=== PATIENT | female | born 1970 | race African-American/Black ===

== ENCOUNTER → 2020-11-22 16:53 | Outpatient (CLI) | payer BC, SELFPAY ==
--- NOTE | ~2020-11-22 | MM_ITS ---
EXAMINATION: MM screening [facility] BI w esther HISTORY: Screening TECHNIQUE: Craniocaudal and mediolateral oblique 3-D tomosynthesis images were obtained and synthetic 2-D images were generated. CAD analysis was submitted and interpreted. COMPARISON: Comparison to multiple prior studies sequentially, with oldest reviewed study dated 01/2014. BREAST PARENCHYMAL COMPOSITION: There are scattered areas of fibroglandular density. FINDINGS: There is no evidence of suspicious mass, calcification, or architectural distortion to sugg est malignancy in either breast. There has been no suspicious interval change. IMPRESSION: 1. No mammographic evidence of malignancy. 2. Recommend routine screening mammography in one year. BI-RADS Category 1: Negative Reviewed, dictated and finalized at location A. ETING MANAGER HEALTH COMMUNICATIONS
== END ==
PROVIDERS: Visit Provider Internal Medicine
DX: Z12.31 Encounter for screening mammogram for malignant neoplasm of breast (principal)
CPT/HCPCS: 77063; 77067

== ENCOUNTER → 2021-12-29 12:16 | Outpatient (CLI) | payer BC, SELFPAY ==
--- NOTE | ~2021-12-29 | MM_ITS ---
EXAMINATION: MM screening [facility] BI w esther HISTORY: Screening mammogram TECHNIQUE: Craniocaudal and mediolateral oblique 3-D tomosynthesis images were obtained and synthetic 2-D images were generated. CAD analysis was submitted and interpreted. COMPARISON: 11/22/2020, 11/06/2019 BREAST PARENCHYMAL COMPOSITION: There are scattered areas of fibroglandular density. FINDINGS: There is no evidence of suspicious mass, calcification, or architectural distortion to sugg est malignancy in either breast. There has been no suspicious interval change. IMPRESSION: 1. No mammographic evidence of malignancy. 2. Recommend routine screening mammography in one year. BI-RADS Category 1: Negative Reviewed, dictated and finalized at location A.
== END ==
PROVIDERS: PCP Internal Medicine; Visit Provider Obstetrics & Gynecology Gynecologic Oncology
DX: Z12.31 Encounter for screening mammogram for malignant neoplasm of breast (principal)
CPT/HCPCS: 77063; 77067

== ENCOUNTER 2022-11-16 18:27 | Emergency (ER) | payer BC, SELFPAY ==
--- NOTE | ~2022-11-16 | US_ITS ---
EXAMINATION: US venous doppler [facility] DATE: 11/16/2022 19:56 INDICATION: Lower extremity pain and edema. TECHNIQUE: Grayscale images without and with compression and Doppler images of the left lower extremi ty veins were obtained. COMPARISON: None FINDINGS: The left common femoral vein, profunda femoral vein, femoral vein, popliteal vein, peroneal vein, pos terior tibial veins, gastrocnemius vein, and greater saphenous vein are patent. Subcutaneous fluid pr esent in the left lateral calf in the area of pain and swelling. IMPRESSION: 1. Patent left lower extremity veins. No evidence of deep venous thrombosis. 2. Left lateral calf edema. Reviewed, dictated and finalized at location K. LY OFFICER
[2022-11-16 18:32] VITALS: BP 185/101; PULSE 117; RESP 15; TEMP 37.2; O2SAT 97
[2022-11-16 18:47] VITALS: BP 160/99; PULSE 100; RESP 18; O2SAT 97
--- NOTE | 2022-11-16 19:08 | ED.GENADULT ---
HPI - General Adult General Chief complaint: Unspecified Stated complaint: multiple complaints Time Seen by Provider: 11/16/22 19:01 History of Present Illness HPI narrative: Patient is a 52-year-old female with a history of hypertension, hyperlipidemia, diabetes presenting with body aches. Patient states that she was diagnosed with the flu several weeks ago. States that she has mostly improved but she has continued to have diffuse body aches. Patient states that for the last 2 days she has had a lot of pain in her left calf. States that she recently drove to [place] and [facility]. States that she went to urgent care today for evaluation but they closed so they directed her to the ER. She denies headache, fevers or chills, cough, chest pain, shortness of breath, abdominal pain, vomiting, diarrhea, dysuria. She does report some nausea and muscle cramps over the weekend. Related Data Allergies Allergy/AdvReac Type Severity Reaction Status Date / Time amoxicillin Allergy Mild Verified 05/18/10 18:02 Review of Systems Review of Systems: All systems reviewed & are unremarkable except as noted in HPI and below Exam Narrative: GENERAL: Well-appearing, well-nourished, and in no acute distress. HEAD: Normocephalic, atraumatic. EYES: PERRLA and EOMI. ENT: Nares clear, no rhinorrhea or epistaxis. Mucous membranes moist. NECK: Supple. CHEST: Clear to auscultation. No respiratory distress. HEART: Regular rate and rhythm. No murmur heard. Normal peripheral pulses. ABDOMEN: Soft, nontender, nondistended, normal active bowel sounds. EXTREMITIES: Normal range of motion. No edema. SKIN: Warm, dry, no rash. NEURO: No focal deficits. Alert and oriented x3. PSYCH: Normal mood and affect. Course Vital Signs Vital signs: Vital Signs Temperature 99 F 11/16/22 18:32 Pulse Rate 117 H 11/16/22 18:32 Respiratory Rate 15 11/16/22 18:32 Blood Pressure 185/101 H 11/16/22 18:32 Pulse Oximetry 97 11/16/22 18:32 Oxygen Delivery Room Air 11/16/22 18:32 Temperature 99 F 11/16/22 18:32 Pulse Rate 88 11/16/22 21:00 Respiratory Rate 16 11/16/22 21:00 Blood Pressure 137/87 11/16/22 21:00 Pulse Oximetry 99 11/16/22 21:00 Oxygen Delivery Room Air 11/16/22 18:32 Medical Decision Making MDM Narrative Medical decision making narrative: Patient is a 52-year-old female presenting with left leg pain and muscle cramping. Patient is hypertensive and was initially a bit tachycardic but this had resolved by my evaluation. Exam is unremarkable. Plan to check labs, ultrasound of the left leg. Blood work with very mild hypocalcemia. Will recommend increasing calcium rich foods. Ultrasound shows no evidence of DVT. On reevaluation, the patient is resting comfortably. Her vitals have completely normalized. Discussed appropriate supportive care and recommended PCP follow-up. Appropriate return precautions given. Patient voiced understanding and is agreeable with plan. Discharged in stable condition Differential Diagnosis Differential Diagnosis: Viral syndrome, URI, DVT, electrolyte derangement Vital Signs Vital Signs: Vital Signs Temperature 99 F 11/16/22 18:32 Pulse Rate 117 H 11/16/22 18:32 Respiratory Rate 15 11/16/22 18:32 Blood Pressure 185/101 H 11/16/22 18:32 Pulse Oximetry 97 11/16/22 18:32 Oxygen Delivery Room Air 11/16/22 18:32 Temperature 99 F 11/16/22 18:32 Pulse Rate 88 11/16/22 21:00 Respiratory Rate 16 11/16/22 21:00 Blood Pressure 137/87 11/16/22 21:00 Pulse Oximetry 99 11/16/22 21:00 Oxygen Delivery Room Air 11/16/22 18:32 Lab Data 11/16/22 19:32 11/16/22 19:32 Labs: Lab Results 11/16/22 11/16/22 Range/Units 19:32 19:32 WBC 6.4 (4.5-10.0) K/mm3 RBC 3.43 L (4.2-5.4) M/mm3 Hgb 11.1 L (12.0-15.0) g/dL Hct 35.5 L (37.0-47.0) % MCV 103.5 H (80-100) fl MCH 32.4 (26-34) pg MCHC 31.3 L (
[2022-11-16 19:37] LABS: Basophils Percent Auto 0.2 % (0.2-1.2); Eosinophils Absolute Auto 0.2 K/mm3 (0-0.3); Eosinophils Percent Auto 2.8 % (0-4.4); Hematocrit 35.5 % (37.0-47.0); Hemoglobin 11.1 g/dL (12.0-15.0); Immature Granulocyte Absolute 0.03 K/mm3 (0.00-0.031); Immature Granulocyte Percent A 0.5 % (0-0.5); Lymphocytes Absolute Auto 2.86 K/mm3 (0.9-3.2); Lymphocytes Percent Auto 44.9 % (18.3-44.2); Mean Corpuscular HGB Conc 31.3 g/dl (32-36); Mean Corpuscular Hemoglobin 32.4 pg (26-34); Mean Corpuscular Volume 103.5 fl (80-100); Mean Platelet Volume 9.4 fl (7.4-10.4); Monocytes Absolute Auto 0.6 K/mm3 (0.1-0.6); Monocytes Percent Auto 9.4 % (2.6-8.5); Neutrophils Absolute Auto 2.7 K/mm3 (1.3-6.7); Neutrophils Percent Auto 42.2 % (45.5-73.1); Platelet Count Result 301 k/mm3 (150-375); Red Blood Count 3.43 M/mm3 (4.2-5.4); White Blood Count 6.4 K/mm3 (4.5-10.0)
[2022-11-16 19:50] LABS: Alanine Aminotransferase 22 U/L (6-35); Albumin Level 3.5 g/dL (3.5-5.1); Alkaline Phosphatase 96 U/L (38-126); Anion Gap 5 mmol/L (8-16); Aspartate Amino Transferase 23 U/L (14-36); Bilirubin,Total 0.4 mg/dL (0.2-1.3); Blood Urea Nitrogen 9 mg/dL (7-17); Calcium 8.3 mg/dL (8.4-10.2); Carbon Dioxide 30 mmol/L (22-30); Chloride 105 mmol/L (98-107); Estimated CRCL calculation 70 ml/min; Estimated Glomerular Filt Rate > 60; Glucose 209 mg/dL (65-110); Potassium 3.7 mmol/L (3.4-5.0); Sodium 140 mmol/L (137-145)
[2022-11-16] MEDS: SODIUM CHLORIDE 0.9% IV 1,000 ML 999 ML IV CONT (20:01)
[2022-11-16] MEDS: KETOROLAC 15 MG/ML VIAL (*BKC) IV PUSH (20:01)
[2022-11-16 20:02] VITALS: BP 137/84; PULSE 83; RESP 16; O2SAT 100
[2022-11-16 21:00] VITALS: BP 137/87; PULSE 88; RESP 16; O2SAT 99
== END 2022-11-16 21:04 | disposition home or self-care (01) ==
PROVIDERS: Emergency Provider Emergency Medicine; PCP Internal Medicine
DX: M79.662 Pain in left lower leg (principal); E83.51 Hypocalcemia
CPT/HCPCS: 36415; 80053; 85025; 93971; 96361; 96374; 99284; J1885; J7030

== ENCOUNTER → 2022-12-30 16:53 | Outpatient (CLI) | payer BC, SELFPAY ==
--- NOTE | ~2022-12-30 | MM_ITS ---
EXAMINATION: MM screening [facility] BI w esther HISTORY: Screening mammogram TECHNIQUE: Craniocaudal and mediolateral oblique 3-D tomosynthesis images were obtained and synthetic 2-D images were generated. CAD analysis was submitted and interpreted. COMPARISON: 12/29/2021, 11/22/2020, 11/06/2019 bilateral screening mammogram examinations BREAST PARENCHYMAL COMPOSITION: There are scattered areas of fibroglandular density. FINDINGS: There is no evidence of suspicious mass, calcification, or architectural distortion to sugg est malignancy in either breast. There has been no suspicious interval change. IMPRESSION: 1. No mammographic evidence of malignancy. 2. Recommend routine screening mammography in one year. BI-RADS Category 1: Negative Reviewed, dictated and finalized at location A.
== END ==
PROVIDERS: PCP Internal Medicine; Visit Provider Obstetrics & Gynecology Gynecologic Oncology
DX: Z12.31 Encounter for screening mammogram for malignant neoplasm of breast (principal)
CPT/HCPCS: 77063; 77067

== ENCOUNTER 2024-01-03 16:18 | Outpatient (CLI) | payer BC, SELFPAY ==
--- NOTE | ~2024-01-03 | MM_ITS ---
EXAMINATION: MM screening [facility] BI w esther HISTORY: Screening TECHNIQUE: Craniocaudal and mediolateral oblique 3-D tomosynthesis images were obtained and synthetic 2-D images were generated. CAD analysis was submitted and interpreted. COMPARISON: Comparison to multiple prior studies sequentially, with oldest reviewed study dated 05/2018. BREAST PARENCHYMAL COMPOSITION: Not dense: There are scattered areas of fibroglandular density. FINDINGS: There is no evidence of suspicious mass, calcification, or architectural distortion to sugg est malignancy in either breast. There has been no suspicious interval change. IMPRESSION: 1. No mammographic evidence of malignancy. 2. Recommend routine screening mammography in one year. BI-RADS Category 1: Negative Reviewed, dictated and finalized at location A.
== END 2024-01-03 16:19 ==
LOC: MICIMG 16:20
PROVIDERS: Visit Provider Internal Medicine
DX: Z12.31 Encounter for screening mammogram for malignant neoplasm of breast (principal)
CPT/HCPCS: 77063; 77067

== ENCOUNTER 2025-01-08 16:01 | Outpatient (CLI) | payer BC, SELFPAY ==
--- NOTE | ~2025-01-08 | MM_ITS ---
EXAMINATION: MM screening [facility] BI w esther HISTORY: Screening TECHNIQUE: Craniocaudal and mediolateral oblique 3-D tomosynthesis images were obtained and synthetic 2-D images were generated. CAD analysis was submitted and interpreted. COMPARISON: 01/03/2024 and dating back to 11/06/2019 BREAST PARENCHYMAL COMPOSITION: The breasts are heterogeneously dense, which may obscure small masses . FINDINGS: Stable parenchymal pattern without suspicious microcalcifications, architectural distortion, discrete masses or significant asymmetry. IMPRESSION: 1. No mammographic evidence of malignancy. 2. Recommend routine screening mammography in one year. BI-RADS Category 1: Negative Reviewed, dictated and finalized at location A.
== END 2025-01-08 16:02 | disposition home or self-care (01) ==
LOC: MICIMG 16:03
PROVIDERS: PCP Internal Medicine; Visit Provider Internal Medicine
DX: Z12.31 Encounter for screening mammogram for malignant neoplasm of breast (principal)
CPT/HCPCS: 77063; 77067

== ENCOUNTER 2025-02-10 14:01 | Emergency (ER) | payer BC, SELFPAY ==
--- NOTE | ~2025-02-10 | CT_ITS ---
CT brain wo con Ordering provider: Ina Ramsey MD History: 54 years Female with . trauma . Comparison: None. Technique: CT of the head without contrast. Radiation reduction technique utilized.The dose-length pr oduct was 605.33 mGy-cm. FINDINGS: BRAIN PARENCHYMA AND CSF SPACES: No midline shift, mass effect or hemorrhage. The brain parenchyma a nd CSF spaces are otherwise normal. VISUALIZED PARANASAL SINUSES: Well aerated. MASTOIDS: Well aerated. BONES: The bones appear intact. SOFT TISSUES: Visualized nasopharynx is normal. Superficial soft tissues are normal. IMPRESSION: No acute intracranial findings. Reviewed, dictated and finalized at location A.
--- OUTSIDE RECORDS SUMMARY | 2025-02-10 14:03 | XMS_ITS | Clinical Summary ---
Author Organization [facility] Address [address] [place] [address] Care Team Providers Care Retail Pharmacy Technician Name Role Phone Unavailable Primary Care Provider Unavailabl e Source Comments [facility],non-owned Affiliates and Associated Physician Practices is amultiple site organization consisting of ambulatory clinics and hospital sitesin [place], [place], [place] and [place]. This disclosure is being madepursuant to the Care Everywhere program and may not contain all information available regarding this patient. Last updated 18.[facility] Allergies Active Allergy Reactions Criticality Noted Date Comments Penicillins Urticaria Medium 09/01/2019 Medications * Be aware that medications may not be up to date on this document. Alwaysverify current medications with the patient. METFORMIN HCL PO Active fluticasone propionate (FLONASE) 50 MCG/ACT nasal spray [place] 2 sprays into each nostril once daily 1 g 09/01/2019 Active Social History Tobacco Use Types Packs/Day Years Used Date Smoking Tobacco: Never Smokeless Tobacco: Never Comments No Sex and Gender Information Value Date Recorded Sex Assigned at Not on file Legal Sex Female 12:55 PM CLOTH HAULER Gender Identity Not on file Sexual Orientation Not on file Last Filed Vital Signs Vital Sign Reading Time Taken Comments Blood Pressure 124/76 09/01/2019 9:33 AM CLOTH HAULER Pulse 97 09/01/2019 9:33 AM CLOTH HAULER Temperature 36.9 C (98.5 F) 09/01/2019 9:33 AM CLOTH HAULER Respiratory Rate 18 09/01/2019 9:33 AM CLOTH HAULER Oxygen Saturation 98% 09/01/2019 9:33 AM CLOTH HAULER Inhaled Oxygen Concentration - - Weight 98.9 kg (218 lb) 09/01/2019 9:33 AM CLOTH HAULER Height 162.6 cm (5' 4 ) 09/01/2019 9:33 AM CLOTH HAULER Body Mass Index 37.42 09/01/2019 9:33 AM CLOTH HAULER Plan of Treatment Health Maintenance Due Date Last Done Comments COLOGUARD (AGES 45-75) - COL ON CA SCREENING 1970 COLON MONITORING 1970 COLONOSCOPY - COLON CA SCREENING 1970 CT COLONOGRAPHY - COLON CA SCREENING 1970 Colorectal Cancer Screening 1970 FIT - COLON CA SCREENING 1970 FLEX SIG - COLON CA SCREENING 1970 LIPID TESTING 1970 MAMMOGRAM 1970 HIV SCREENING 1985 HEPATITIS C SCREENING 09/07/1988 DTAP/TDAP/TD VACCINES (1 - Tdap) 1989 HEPATITIS B VACCINE (1 of 3 - 19+ 3-dose series) 1989 SCREENING FOR DIABETES 09/01/2019 PNEUMOCOCCAL VACCINE 50+ (1 of 1 - PCV) 2020 ZOSTER VACCINE (1 of 2) 2020 COVID-19 VACCINE (1 - 2023-2 5 season) 2024 DEPRESSION SCREENING 10/18/2024 INFLUENZA VACCINE (Season Ended) 2025 HIB VACCINE Aged Out No longer eligi ble based on patient's age to complete this topic HPV VACCINE Aged Out No longer eligi ble based on patient's age to complete this topic MENINGOCOCCAL (Group B) VACC INE SHARED DECISION-MAKING Aged Out No longer eligibl e based on patient's age to complete this topic MENINGOCOCCAL GROUPS A/C/Y/W VACCINE Aged Out No longer eligible b ased on patient's age to complete this topic Insurance ERLINDA
--- OUTSIDE RECORDS SUMMARY | 2025-02-10 14:03 | XMS_ITS | Clinical Summary ---
Author Organization [facility] Address [address] [place] [address] Phone Care Team Providers Care Laminator Hand Name Role Phone [facility]o Roth MD Primary Care Provider [phone] Social History Tobacco Use Types Packs/Day Years Used Date Smoking Tobacco: Never Assessed Comments Unknown Sex and Gender Information Value Date Recorded Sex Assigned at Not on file Legal Sex Female 1:53 PM COMMUNITY COORDINATOR Gender Identity Not on file Sexual Orientation Not on file Plan of Treatment Health Maintenance Due Date Last Done Comments DTAP/TDAP/TD VACCINES (1 - Tdap) 1989 HEPATITIS B VACCINES (1 of 3 - 19+ 3-dose series) 08/19 HPV/Cotest (21-29) 1991 CERVICAL CANCER SCREENING 2000 HPV/Cotest (30-65) 2000 PAP SMEAR 2000 BREAST CANCER SCREENING 2010 COLORECTAL SCREENING 2015 Colorectal Cancer Screening 2015 FIT-DNA Q 3 years 2015 FIT/FOBT Q 1 year 2015 Flex Sig/CT Colonography Q 5 years 2015 ZOSTER VACCINE (1 of 2) 2020 INFLUENZA VACCINE (#1) 2024 Insurance BCBS [employer] Care Teams Laminator Hand Relationship Specialty Start Date End Date Pollo Roth MD [address] [facility], [address] [address] PCP - General Gynecologic Oncology 10/04/17
--- OUTSIDE RECORDS SUMMARY | 2025-02-10 14:03 | XMS_ITS | Encounter Summary ---
Author Organization [facility] Address [address] [place] [id number] Care Team Providers Care Top Ironer Name Role Phone Phyllis Crawley DO Primary Care Provider [phone] Encounter Details Date Type Department Care Team (Latest Contact Info) Description 08/23/2018 Abstract [facility] , Marli Donohue MD Social History Tobacco Use Types Packs/Day Years Used Date Smoking Tobacco: Never Comments Unknown Sex and Gender Information Value Date Recorded Sex Assigned at Not on file Legal Sex Female 1:23 AM CDT Gender Identity Not on file Sexual Orientation Not on file documented as of this encounter Plan of Treatment Not on file documented as of this encounter Visit Diagnoses Not on filedocumented in this encounter Care Teams Top Ironer Relationship Specialty Start Date End Date Phyllis Crawley DO [address] [place] [address] PCP - General 07/30/14 documented as of this encounter
--- OUTSIDE RECORDS SUMMARY | 2025-02-10 14:03 | XMS_ITS | Clinical Summary ---
Author Organization [facility] Address [address] [place] [address] Care Team Providers Care Restaurant Hourly Team Member Name Role Phone Phyllis Crawley DO Primary Care Provider [phone] Social History Tobacco Use Types Packs/Day Years Used Date Smoking Tobacco: Never Comments Unknown Sex and Gender Information Value Date Recorded Sex Assigned at Not on file Legal Sex Female 1:23 AM CDT Gender Identity Not on file Sexual Orientation Not on file Last Filed Vital Signs Vital Sign Reading Time Taken Comments Blood Pressure 136/90 04/04/2015 1:51 PM CDT Pulse 76 04/04/2015 1:51 PM CDT Temperature - - Respiratory Rate - - Oxygen Saturation - - Inhaled Oxygen Concentration - - Weight 93 kg (205 lb) 04/04/2015 1:51 PM CDT Height 162.6 cm (5' 4 ) 07/19/2014 2:12 PM CDT Body Mass Index 35.19 07/19/2014 2:12 PM CDT Plan of Treatment Health Maintenance Due Date Last Done Comments Cervical Cancer Screening Pa p Smear (Age 30 to 64) Every 3 Years 1970 Colorectal Cancer Screening Colonoscopy (10 Years) 1970 Annual Physical 1973 DTaP, Tdap and Td Vaccines ( 1 - Tdap) 1989 Hepatitis B Vaccines (1 of 3 - 19+ 3-dose series) 1989 Cervical Cancer Screening Pa p with HPV Testing (Age 30 to 64) Every 5 Years 2000 Cervical Cancer Screening with HPV 2000 Mammogram Screening 2010 Pneumococcal Vaccine: 50+ Ye ars (1 of 1 - PCV) 2020 Zoster Vaccines (1 of 2) 2020 COVID-19 Vaccine ( - 2023-2 5 season) 2024 Hepatitis C Completed 08/20/2014 Meningococcal B Vaccine Aged Out No l onger eligible based on patient's age to complete this topic Meningococcal Vaccine Aged Out No wyatt carolina eligible based on patient's age to complete this topic RSV Immunizations Under 20 Months Aged Out No longer eligible based on patient's age to complete this topic Procedures Procedure Name Priority Date/Time Associated Diagnosis Comments HEPATITIS PANEL,ACUTE Routine 08/20/2014 4:04 PM LOOM WINDER TENDER from Last 3 Months or Most Recently Relevant to Health Maintenance Results * HEPATITIS PANEL,ACUTE (08/20/2014 4:04 PM LOOM WINDER TENDER) HAV IGM NON-REACT LAURA NON-REACT LAURA [facility] TO EPIC CONVERSION HEPATITIS B SURFACE AG NON-REACT LAURA NON-REACT LAURA [facility] TO EPIC CONVERSION HEP B CORE IGM NON-REACT LAURA NON-REACT LAURA [facility] TO EPIC CONVERSION HEPATITIS C AB NON-REACT LAURA NON-REACT LAURA [facility] TO EPIC CONVERSION SIGNAL TO CUTOFF 0.02 <1.00 MED GROUP TO EPIC CONVERSION Comment: Result Comment: Test Performed at: [employer] [facility] [address] NAFISA BECK DO,MPH 08/20/2014 4:04 PM LOOM WINDER TENDER 08/20/2014 4:04 PM LOOM WINDER TENDER Narrative [facility] TO EPIC CONVERSION - 08/20/2014 4:05 PM LOOM WINDER TENDER Result Communication: Call patient with results Phyllis Crawley DO LABORATORY Final Result [facility] TO EPIC CONVERSION from Last 3 Months or Most Recently Relevant to Health Maintenance Care Teams Restaurant Hourly Team Member Relationship Specialty Start Date End Date Phyllis Crawley DO [address] [place] [address] PCP - General 07/30/14
[2025-02-10 14:30] VITALS: BP 170/80; PULSE 110; RESP 16; TEMP 36.8; O2SAT 97
--- OUTSIDE RECORDS SUMMARY | 2025-02-10 16:34 | XMS_ITS | Encounter Summary ---
Author Organization [facility] Address [address] [place] [address] Care Team Providers Care Gas Distribution And Emergency Clerk Name Role Phone Phyllis Crawley DO Primary Care Provider [phone] Encounter Details Date Type Department Care Team (Latest Contact Info) Description 08/23/2018 Abstract [facility] , Marli Donohue MD Social [...] on filedocumented in this encounter Care Teams Gas Distribution And Emergency Clerk Relationship Specialty Start Date End Date Phyllis Crawley DO [address] [place] [address] PCP - General 07/30/14 documented as of this encounter
--- OUTSIDE RECORDS SUMMARY | 2025-02-10 16:34 | XMS_ITS | Clinical Summary ---
Author Organization [facility] Address [address] [place] [address] Care Team Providers Care Face Hardener Name Role Phone Phyllis Crawley DO Primary Care Provider [phone] Social History Tobacco Use Types Packs/Day Years [...] Comments HEPATITIS PANEL,ACUTE Routine 08/20/2014 4:04 PM FLORIST HELPER from Last 3 Months or Most Recently Relevant to Health Maintenance Results * HEPATITIS PANEL,ACUTE (08/20/2014 4:04 PM FLORIST HELPER) HAV IGM NON-REACT LAURA NON-REACT LAURA [facility] TO EPIC CONVERSION HEPATITIS B SURFACE AG NON-REACT LAURA NON-REACT LAURA [facility] TO EPIC CONVERSION HEP B CORE IGM NON-REACT LAURA NON-REACT LAURA [facility] TO EPIC CONVERSION HEPATITIS C AB NON-REACT LAURA NON-REACT LAURA [facility] TO EPIC CONVERSION SIGNAL TO CUTOFF 0.02 <1.00 MED GROUP TO EPIC CONVERSION Comment: Result Comment: Test Performed at: [employer] [facility] [address] NAFISA BECK DO,MPH 08/20/2014 4:04 PM FLORIST HELPER 08/20/2014 4:04 PM FLORIST HELPER Narrative [facility] TO EPIC CONVERSION - 08/20/2014 4:05 PM FLORIST HELPER Result Communication: Call patient with results Phyllis Crawley DO LABORATORY Final Result [facility] TO EPIC CONVERSION from Last 3 Months or Most Recently Relevant to Health Maintenance Care Teams Face Hardener Relationship Specialty Start Date End Date Phyllis Crawley DO [address] [place] [address] PCP - General 07/30/14
--- OUTSIDE RECORDS SUMMARY | 2025-02-10 16:34 | XMS_ITS | Clinical Summary ---
Author Organization [facility] Address [address] [place] [address] Phone Care Team Providers Care Rural Sociologist Name Role Phone [facility]o Roth MD Primary Care Provider [phone] Social History Tobacco Use Types Packs/Day Years Used Date Smoking Tobacco: Never Assessed Comments Unknown Sex and Gender Information Value Date Recorded Sex Assigned at Not on file Legal Sex Female 1:53 PM STEAM AND GAS TURBINE ASSEMBLER Gender Identity Not on file Sexual Orientation [...] (#1) 2024 Insurance BCBS FEDERAL Care Teams Rural Sociologist Relationship Specialty Start Date End Date Pollo Roth MD [address] [facility], [address] [phone] PCP - General Gynecologic Oncology 10/04/17
--- OUTSIDE RECORDS SUMMARY | 2025-02-10 16:34 | XMS_ITS | Clinical Summary ---
Author Organization [facility] Address [address] [place] [address] Care Team Providers Care Package Clerk Name Role Phone Unavailable Primary Care Provider Unavailabl e Source Comments [facility],non-owned Affiliates and Associated Physician Practices is amultiple site organization consisting of ambulatory clinics and hospital sitesin [place], [place], [place] and [place]. This disclosure is being madepursuant to the Care Everywhere program and may not contain all information available regarding this patient. Last updated 18.[facility] [employer] Allergies Active Allergy Reactions Criticality Noted Date Comments Penicillins Urticaria Medium 09/01/2019 Medications * Be aware that medications may not be up to date on this document. Alwaysverify current medications with the patient. METFORMIN HCL PO Active fluticasone propionate (FLONASE) 50 MCG/ACT nasal spray [place] 2 sprays into each nostril once daily 1 g 09/01/2019 Active Social History Tobacco Use Types Packs/Day Years Used Date Smoking Tobacco: Never Smokeless Tobacco: Never Comments No Sex and Gender Information Value Date Recorded Sex Assigned at Not on file Legal Sex Female 12:55 PM CURATOR NATURAL HISTORY MUSEUM Gender Identity Not on file Sexual Orientation Not on file Last Filed Vital Signs Vital Sign Reading Time Taken Comments Blood Pressure 124/76 09/01/2019 9:33 AM CURATOR NATURAL HISTORY MUSEUM Pulse 97 09/01/2019 9:33 AM CURATOR NATURAL HISTORY MUSEUM Temperature 36.9 C (98.5 F) 09/01/2019 9:33 AM CURATOR NATURAL HISTORY MUSEUM Respiratory Rate 18 09/01/2019 9:33 AM CURATOR NATURAL HISTORY MUSEUM Oxygen Saturation 98% 09/01/2019 9:33 AM CURATOR NATURAL HISTORY MUSEUM Inhaled Oxygen Concentration - - Weight 98.9 kg (218 lb) 09/01/2019 9:33 AM CURATOR NATURAL HISTORY MUSEUM Height 162.6 cm (5' 4 ) 09/01/2019 9:33 AM CURATOR NATURAL HISTORY MUSEUM Body Mass Index 37.42 09/01/2019 9:33 AM CURATOR NATURAL HISTORY MUSEUM Plan of Treatment Health Maintenance Due Date [...]
--- NOTE | 2025-02-10 16:52 | ED_ITS ---
HPI - General Adult General Chief complaint: Headache Stated complaint: headache, brain fog Time Seen by Provider: 02/10/25 16:02 History of Present Illness HPI narrative: 54-year-old female presents to the emergency department for evaluation for brain fog after patient had a fall on January 29. Patient [facility] and was found to have a vertebral compression fracture. Patient is going to have follow-up with Neurosurgery but patient does have outpatient CT head an outpatient MRI of spine ordered for February 20. Patient states she has been taking naproxen and tramadol for pain control and has felt that she has been increasingly foggy headed. Patient states that she cannot wait until February [address] the have the head CT. Related Data Allergies Allergy/AdvReac Type Severity Reaction Status Date / Time amoxicillin Allergy Mild Verified 05/18/10 18:02 Review of Systems Review of Systems: All systems reviewed & are unremarkable except as noted in HPI and below Exam Narrative: APPEARANCE: Well appearing, no pain, no distress, well-nourished. HEAD: normocephalic, atraumatic. EYES: PERRLA/EOMI, conjunctivae clear. NOSE: Normal no drainage EARS:TMS clear with good light reflex. THROAT: Pharynx clear, no exudate. NECK: Supple. No adenopathy, no masses. RESPIRATORY: Airway patent, respirations nonlabored. Clear to auscultation bilaterally, no rales, rhonchi, wheezing. CARDIOVASCULAR: Regular rate and rhythm without murmurs rubs or gallops. ABDOMINAL: Soft, nontender, nondistended, normal bowel sounds MUSCULOSKELETAL: Moves all extremities. Strength/ROM intact, No edema, No calf tenderness. NEURO: Alert. Cranial nerves II through XII intact. Good gait. Good coordination SKIN: Warm, dry. Normal Color Course Vital Signs Vital signs: Vital Signs Temperature 98.2 F 02/10/25 14:30 Pulse Rate 110 H 02/10/25 14:30 Respiratory Rate 16 02/10/25 14:30 Blood Pressure 170/80 H 02/10/25 14:30 Pulse Oximetry 97 02/10/25 14:30 Temperature 98.2 F 02/10/25 14:30 Pulse Rate 80 02/10/25 17:06 Respiratory Rate 18 02/10/25 17:06 Blood Pressure 150/84 H 02/10/25 17:06 Pulse Oximetry 100 02/10/25 17:06 Medical Decision Making MDM Narrative Medical decision making narrative: [age] old female presents emergency department for evaluation for being foggy headed after a head injury approximately [address] was negative. Patient has no acute abnormalities on her neuro exam. Patient does have follow-up scheduled for additional imaging. Differential Diagnosis Differential Diagnosis: Subdural hematoma, subarachnoid hemorrhage, skull fracture, concussion, postconcussive syndrome Vital Signs Vital Signs: Vital Signs Temperature 98.2 F 02/10/25 14:30 Pulse Rate 110 H 02/10/25 14:30 Respiratory Rate 16 02/10/25 14:30 Blood Pressure 170/80 H 02/10/25 14:30 Pulse Oximetry 97 02/10/25 14:30 Temperature 98.2 F 02/10/25 14:30 Pulse Rate 80 02/10/25 17:06 Respiratory Rate 18 02/10/25 17:06 Blood Pressure 150/84 H 02/10/25 17:06 Pulse Oximetry 100 02/10/25 17:06 Imaging Data Radiologist's impression: Impressions Head CT 02/10/25 16:50 IMPRESSION: No acute intracranial findings. Discharge Plan Discharge Clinical Impression: Head injury Patient Disposition: Home Condition: Stable Instructions: Antibiotic Form, Head Injury (ED) Additional Instructions: Have close follow-up with your physicians as scheduled for outpatient. If you have any worsening symptoms then please call or return to the emergency department. Patient Language: Japanese Follow-up/Referrals: Bradly,Cristiano Odell MD [Primary Care Provider] -
[2025-02-10 17:06] VITALS: BP 150/84; PULSE 80; RESP 18; O2SAT 100
== END 2025-02-10 17:08 | disposition home or self-care (01) ==
PROVIDERS: Emergency Provider Emergency Medicine; PCP Internal Medicine
DX: S09.90XA Unspecified injury of head, initial encounter (principal); W19.XXXA Unspecified fall, initial encounter
CPT/HCPCS: 70450; 99284